=== PATIENT | male | born 1970 | race Caucasian/White ===

== ENCOUNTER 2017-02-02 11:13 | Inpatient (IN) | payer OTHER ==
[2017-02-02 11:38] VITALS: BMI 34.0
--- NOTE | 2017-02-02 20:20 | HP ---
COWS - Scale Resting Pulse: 1= AL 81-100 Sweatin=Flushed/Facial Moisture Restless Observation: 5= Unable to Sit Still Pupil Size: 1= Pupils >than Normal Bone or Joint Aches: 4=Acute Joint/Muscle Pain Runny Nose/ Eye Tearin= Runny Nose/Eyes GI Upset > 30mins: 2= Nausea/Diarrhea Tremor Observation: 4= Gross Tremor/Twitching Yawning Observation: 0= None Anxiety or Irritability: 4=Extreme Anxiety Goose Flesh Skin: 0=Smooth Skin COWS Score: 25 CIWA Score - CIWA Score Nausea/Vomitin-Mild Nausea/No Vomiting Muscle Tremors: 5 Anxiety: 5 Agitation: 5 Paroxysmal Sweats: 3 Orientation: 0-Oriented Tacttile Disturbances: 0-None Auditory Disturbances: 0-None Visual Disturbances: 0-None Headache: 0-None Present CIWA-Ar Total Score: 19 Admission ROS S - HPI Chief Complaint: SEEKING DETOX FOR ALCOHOLISM AND HEROIN ADDICTION Allergies/Adverse Reactions: Allergies Allergy/AdvReac Type Severity Reaction Status Date / Time No Known Allergies Allergy Verified 02/02/17 12:13 History of Present Illness: 46 Y.O. MALE WITH OPIOID AND ALCOHOLO DEPENDENCE ADMITTED FOR DETOX TXMENT. CLIENT RETURNS FROM [facility] AFTER BEING SENT THERE EARLIER FOR C/O CHEST PAIN. HE HAS SINCE BEEN MEDICALLY CLEARED AND HAS RETURNED FOR DETOX TXMENT. Exam Limitations: No Limitations - Ebola screening Have you traveled outside of the country in the last 21 days: No Have you had contact with anyone from an Ebola affected area: No Have you been sick,other than usual withdrawal symptoms: No Do you have a fever: No - Review of Systems Constitutional: Chills, Loss of Appetite, Malaise, Night Sweats, Changes in sleep, Unintentional Wgt. Loss EENT: reports: Nose Congestion, Dental Problems, Other (RINORRHEA) Respiratory: reports: Shortness of Breath Cardiac: reports: Chest Pain (MUSCULOSKELETAL R/T CLEARED BY ED) GI: reports: Nausea, Poor Appetite : reports: No Symptoms Reported Musculoskeletal: reports: Joint Pain (L ANKLE PAIN), Muscle Pain (CHEST) Integumentary: reports: Bruising (TO BLE FROM TRYING TO SHOOT HEROIN) Neuro: reports: No Symptoms reported Endocrine: reports: No Symptoms Reported Hematology: reports: No Symptoms Reported Psychiatric: reports: Anxious, Depressed Other Systems: Reviewed and Negative Patient History - Patient Medical History Hx Anemia: No Hx Asthma: No Hx Chronic Obstructive Pulmonary Disease (COPD): No Hx Cancer: No Hx Cardiac Disorders: No Hx Congestive Heart Failure: No Hx Hypertension: No Hx Hypercholesterolemia: No Hx Pacemaker: No HX Cerebrovascular Accident: No Hx Seizures: No Hx Dementia: No Hx Diabetes: No Hx Gastrointestinal Disorders: No Hx Liver Disease: Yes (H/O HEPC ) Hx Genitourinary Disorders: No Hx Sexually Transmitted Disorders: No Hx Renal Disease (ESRD): No Hx Thyroid Disease: No Hx Human Immunodeficiency Virus (HIV): No Hx Hepatitis C: Yes Hx Depression: Yes (SEROQUEL) Hx Suicide Attempt: No Hx Bipolar Disorder: No Hx Schizophrenia: No Other Medical History: DENIES - Patient Surgical History Past Surgical History: No Hx Neurologic Surgery: No Hx Cataract Extraction: No Hx Cardiac Surgery: No Hx Lung Surgery: No Hx Breast Surgery: No Hx Breast Biopsy: No Hx Abdominal Surgery: No Hx Appendectomy: No Hx Cholecystectomy: No Hx Genitourinary Surgery: No Hx Section: No Hx Orthopedic Surgery: No Anesthesia Reaction: No - PPD History Previous Implant?: No Documented Results: Negative w/o proof Implanted On Prior [facility] Admission?: No PPD to be Administered?: Yes - Smoking Cessation Smoking history: Current every day smoker Have you smoked in the past 12 months: Yes Aproximately how many cigarettes per day: 10 Cigars Per Day: 0 Hx Chewing Tobacco Use: No Initiated information on smoking cessation: Yes 'Breaking Loose' booklet given: 02/02/17 - Substance & Tx. History Hx Alcohol Use: Yes Hx Substance Use: Yes Substance Use Type: Alcohol, Cocaine, Heroin Hx Substance Use Treatment: Yes (DOES NOT RECALL) - Substances Abused Heroin Route: Injection Frequency: Daily Amount used: 8 bags Age of first use: 20 Date of Last Use: 02/02/17 Cocaine Route: Injection Frequency: Daily Amount used: $20 Age of first use: 18 Date of Last Use: 02/02/17 Alcohol Route: Oral Frequency: Daily Amount used: 4-40 oz beer Age of first use: 20 Date of Last Use: 02/02/17 Family Disease History - Family Disease History Family History: Unable to Obtain (ESTRANGED) Admission Physical Exam BHS - Vital Signs Vital Signs: Vital Signs - 24 hr 02/02/17 11:32 Temperature 96.8 F L Pulse Rate 98 H Respiratory 20 Rate Blood Pressure 131/81 - Physical General Appearance: Yes: Appropriately Dressed, Moderate Distress, Tremorous, Irritable, Sweating, Anxious HEENTM: Yes: EOMI, Normocephalic, SRI, Pharynx Normal, Nasal Congestion, Rhinorrhea, Other (PARTIAL DENTURES) Respiratory: Yes: Chest Non-Tender, Lungs Clear, Normal Breath Sounds, No Respiratory Distress, No Accessory Muscle Use Neck: Yes: No masses,lesions,Nodules, Supple, Trachea in good position Breast: Yes: Breast Exam Deferred Cardiology: Yes: Regular Rhythm, S1, S2, Tachycardia Abdominal: Yes: Normal Bowel Sounds, Non Tender, Soft Genitourinary: Yes: Within Normal Limits Back: Yes: Normal Inspection Musculoskeletal: Yes: full range of Motion, Gait Steady Extremities: Yes: Normal Capillary Refill, Normal Range of Motion, Non-Tender, Tremors 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 NML intact, Fully Oriented, Alert, Motor Strength 5/5 Integumentary: Yes: Warm, Moist, Track [place] Lymphatic: Yes: Within Normal Limits - Diagnostic (1) Nicotine dependence Status: Chronic Qualifiers: Nicotine product type: cigarettes Substance use status: uncomplicated Qualified Code(s): F17.210 - Nicotine dependence, cigarettes, uncomplicated (2) Alcohol dependence with uncomplicated withdrawal Status: Chronic (3) Opioid dependence with withdrawal Status: Chronic (4) Cocaine dependence, uncomplicated Status: Chronic Cleared for Admission [facility] - Detox or Rehab [facility] Level of Care: Medically Managed Detox Regimen/Protocol: Methadone/Librium [facility] Breath Alcohol Content Breath Alcohol Content: 0 Urine Drug Screen - Results Drug Screen Negative: No Urine Drug Screen Results: KAMI-Cocaine, OPI-Opiates, MTD-Methadone
[2017-02-02] MEDS ORDERED: chlordiazePOXIDE HCL 25 MG CAPSULE PO PRN (20:36)
[2017-02-02] MEDS ORDERED: P-EPHED 60MG/TRIPROLIDI 2.5MG TABLET PO PRN (20:36)
[2017-02-02] MEDS ORDERED: MAGNESIUM HYDROX 2400MG/30ML ORAL SUSPENSION 30 ML CUP PO PRN (20:36)
[2017-02-02] MEDS ORDERED: ACETAMINOPHEN 325 MG TABLET (FP) PO PRN (20:36)
[2017-02-02] MEDS ORDERED: NICOTINE POLACRILEX 2 MG GUM BC PRN (20:36)
[2017-02-02] MEDS ORDERED: diphenhydrAMINE HCL 50 MG CAPSULE PO PRN (20:36)
[2017-02-02] MEDS ORDERED: MAGNESIUM CITRATE 300 ML BOTTLE PO PRN (20:36)
[2017-02-02] MEDS ORDERED: METHADONE HCL 10 MG TABLET (FOR DETOX USE ONLY) PO ONE ×2 (20:36→23:00)
[2017-02-02] MEDS ORDERED: MENTHOL/PHENOL 1 EACH UD MM PRN (20:36)
[2017-02-02] MEDS ORDERED: hydrOXYzine PAMOATE 50 MG CAPSULE (FP) PO PRN (20:36)
[2017-02-02] MEDS ORDERED: MAG HYDROX/AL HYDROX/SIMETH 30 ML UNIT-DOSE CUP PO PRN (20:36)
[2017-02-02] MEDS ORDERED: guaiFENesin/D-METHORPHAN HB 10 ML UNIT-DOSE CUPS PO PRN (20:36)
[2017-02-02] MEDS ORDERED: LOPERAMIDE HCL 2 MG CAPSULE PO PRN (20:36)
[2017-02-02] MEDS ORDERED: METHADONE HCL 10 MG TABLET (FOR DETOX USE ONLY) ONE (23:18)
[2017-02-02] MEDS: chlordiazePOXIDE HCL 25 MG CAPSULE PO SCH (23:30)
[2017-02-02] MEDS: NICOTINE 14 MG/24 HOURS TOPICAL PATCH TD SCH (23:31)
[2017-02-02] MEDS: IBUPROFEN 400 MG TABLET (FP) PO PRN (23:42)
[2017-02-02] MEDS: THIAMINE HCL 100 MG TABLET (FP) PO SCH (23:47)
[2017-02-03 01:40] LABS: URINE APPEARANCE SLCLOUDY; URINE BILIRUBIN NEGATIVE (NEGATIVE); URINE BLOOD NEGATIVE (NEGATIVE); URINE GLUCOSE (UA) NEGATIVE (NEGATIVE); URINE KETONE NEGATIVE (NEGATIVE); URINE LEUK ESTERASE NEGATIVE (NEGATIVE); URINE NITRITE NEGATIVE (NEGATIVE); URINE PROTEIN NEGATIVE (NEGATIVE); URINE UROBILINOGEN NEGATIVE mg/dL (0.2-1.0)
[2017-02-03 01:48] LABS: URINE COLOR DK.YELLOW
[2017-02-03] MEDS: chlordiazePOXIDE HCL 25 MG CAPSULE PO SCH ×3 (06:57→17:55)
[2017-02-03] MEDS: IBUPROFEN 400 MG TABLET (FP) PO PRN (06:58)
--- NOTE | 2017-02-03 08:29 | CONSULT ---
[facility] Psychiatric Consult - Data Date of interview: 02/03/17 Admission source: [facility] Identifying data: This ios 46 years old homopsexual male with history of depression and anxiety, history of psychiatric hospitalization, intoxicated with : Alcohol, Cocaine and Nicotine Substance Abuse History: - Smoking Cessation. Smoking history: Current every day smoker. Have you smoked in the past 12 months: Yes. Aproximately how many cigarettes per day: 10. Hx Chewing Tobacco Use: No. Initiated information on smoking cessation: Yes. - Substance & Tx. History. Hx Alcohol Use: Yes. Hx Substance Use: Yes. Substance Use Type: Alcohol, Cocaine, Heroin. Hx Substance Use Treatment: Yes (DOES NOT RECALL). - Substances Abused. Heroin. Route: Injection. Frequency: Daily. Amount used: 8 bags. Age of first use: 20. Date of Last Use: 02/02/17. Cocaine. Route: Injection. Frequency: Daily. Amount used: $20. Age of first use: 18. Date of Last Use: 02/02/17. Alcohol. Route: Oral. Frequency: Daily. Amount used: 4-40 oz beer. Age of first use: 20. Date of Last Use: 02/02/17 Medical History: Chest pain history Psychiatric History: Josiah meehan reports history of anxiety and insomnia, reports taking prior to admission: Seroquel 300mg po qhs. Vistaril 50mg po prn q4 for agitation. Reports unclear psychiatric admission on aboipr 10 years ago for safety Physical/Sexual Abuse/Trauma History: Unclear Additional Comment: Seroquel 300mg po qhs. Vistaril 50mg po prn q4 for agitation Mental Status Exam - Mental Status Exam Alert and Oriented to: Person Cognitive Function: Fair Patient Appearance: Well Groomed Mood: Anxious Affect: Labile Patient Behavior: Impulsive, Talkative Voice Loudness: Mildly Loud Thought Process: Flight of Ideas, Goal Oriented Thought Disorder: Being Controlled Hallucinations: Denies Suicidal Ideation: Denies Homicidal Ideation: Denies Insight/Judgement: Fair Sleep: Difficulty falling asleep Appetite: Weight loss Muscle strength/Tone: Normal Gait/Station: Normal Additional Comments: Seroquel 300mg po qhs. Vistaril 50mg po prn q4 for agitation Psychiatric Findings - Problem List ([place] 1, 2,3) (1) Nicotine dependence Current Visit: Yes Status: Acute Qualifiers: Nicotine product type: cigarettes Substance use status: uncomplicated Qualified Code(s): F17.210 - Nicotine dependence, cigarettes, uncomplicated (2) Alcohol dependence with uncomplicated withdrawal Current Visit: Yes Status: Chronic (3) Cocaine dependence, uncomplicated Current Visit: Yes Status: Chronic (4) Opioid dependence with withdrawal Current Visit: Yes Status: Chronic (5) Drug-induced mood disorder Current Visit: Yes Status: Acute - Initial Treatment Plan Initial Treatment Plan: Seroquel 300mg po qhs. Vistaril 50mg po prn q4 for agitation
--- NOTE | 2017-02-03 09:45 | PN ---
S CIWA - CIWA Score Nausea/Vomitin Muscle Tremors: 4-Moderate,w/Arms Extend Anxiety: 4-Mod. Anxious/Guarded Agitation: 4-Moderately Restless Paroxysmal Sweats: 3 Orientation: 0-Oriented Tacttile Disturbances: 0-None Auditory Disturbances: 0-None Visual Disturbances: 0-None Headache: 0-None Present CIWA-Ar Total Score: 18 BHS COWS - Scale Resting Pulse: 0= ND 80 or Below Sweatin= Chills/Flushing Restless Observation: 1= Difficult to Sit Still Pupil Size: 1= Pupils >than Normal Bone or Joint Aches: 1= Mild Discomfort Runny Nose/ Eye Tearin= Nasal Congestion GI Upset > 30mins: 2= Nausea/Diarrhea Tremor Observation of Outstretched Hands: 2= Slight Tremor Visible Yawning Observation: 1= 1-2x During Session Anxiety or Irritability: 2=Irritable/Anxious Goose Flesh Skin: 3=Piloerection COWS Score: 15 BHS Progress Note (SOAP) Subjective: nausea, sweats, interrupted sleep, anxiety, tremors, requesting cane as amublatory aid Objective: 02/03/17 09:44 Vital Signs - 8 hr 02/03/17 06:48 Temperature 97.9 F Pulse Rate 54 L Respiratory 16 Rate Blood Pressure 150/77 Laboratory Tests 02/02/17 23:52 Urine Color Dk.yellow Urine Appearance Slcloudy Urine pH 5.0 Ur Specific [place] 1.025 Urine Protein Negative Urine Glucose (UA) Negative Urine Ketones Negative Urine Blood Negative Urine Nitrite Negative Urine Bilirubin Negative Urine Urobilinogen Negative labs pending Assessment: 02/03/17 09:44 withdrawal sx Plan: cont detox.
[2017-02-03] MEDS ORDERED: METHADONE HCL 10 MG TABLET (FOR DETOX USE ONLY) PO SCH (10:00)
[2017-02-03] MEDS ORDERED: PRENATAL VITAMINS W/ FOLIC ACID TABLET (FP) PO SCH (10:00)
[2017-02-03] MEDS ORDERED: PANTOPRAZOLE 40 MG TABLET (FP) PO SCH (10:00)
[2017-02-03 10:02] LABS: MCH 28.5 pg (25.7-33.7); MCHC 33.7 g/dl (32.0-35.9); MEAN CELL VOLUME 84.4 fl (80-96); MEAN PLT VOLUME 8.6 fl (7.5-11.1); RDW 13.9 % (11.9-15.9); WHITE BLOOD COUNT 7.6 K/mm3 (4.0-10.0)
[2017-02-03 10:17] LABS: ALK PHOS 38 U/L (45-117); ANION GAP 8 (8-16); BILIRUBIN,TOTAL 1.2 mg/dL (0.2-1.0); CALCIUM 9.1 mg/dL (8.5-10.1); CO2 29 mmol/L (21-32); CREATININE 0.8 mg/dL (0.7-1.3); GLUCOSE,RANDOM 113 mg/dL (74-106); SGOT/AST 26 U/L (15-37); SGPT/ALT 36 U/L (12-78); TOT PROT 8.3 g/dl (6.4-8.2)
[2017-02-03] MEDS ORDERED: TRIMETHOBENZAMIDE HCL 200MG/2ML INJ IM ONE (10:26)
[2017-02-03] MEDS ORDERED: TRIMETHOBENZAMIDE HCL 200MG/2ML INJ IM PRN (10:26)
[2017-02-03] MEDS: cloNIDine HCL 0.1 MG TABLET PO SCH ×2 (11:11→22:24)
[2017-02-03] MEDS: NAPROXEN 500 MG TABLET (FP) PO SCH ×2 (11:12→22:24)
[2017-02-03] MEDS: NICOTINE 14 MG/24 HOURS TOPICAL PATCH TD SCH (11:16)
[2017-02-03 11:41] LABS: PLATELET COUNT 180 K/MM3 (134-434); PLATELET ESTIMATE ADEQUATE (NORMAL)
[2017-02-03] MEDS ORDERED: FLU VACCINE QUAD 60 MCG/0.5 ML (MDV 17-18) IM ONE (12:00)
--- NOTE | 2017-02-03 13:23 | EKG ---
Test Reason : Blood Pressure : / mmHG Vent. Rate : 063 BPM Atrial Rate : 063 BPM P-R Int : 168 ms QRS Dur : 098 ms QT Int : 416 ms P-R-T Axes : 001 022 012 degrees QTc Int : 425 ms NORMAL SINUS RHYTHM NORMAL ECG WHEN COMPARED WITH ECG OF 02-FEB-2017 21:22, NO SIGNIFICANT CHANGE WAS FOUND Confirmed by CHARLOTTE REYES MD ([id number]) on 02/03/2017 1:23:41 PM Referred By: Ronak Muhammad Confirmed By:CHARLOTTE REYES MD
--- NOTE | 2017-02-03 13:25 | EKG ---
Test Reason : Blood Pressure : / mmHG Vent. Rate : 056 BPM Atrial Rate : 056 BPM P-R Int : 170 ms QRS Dur : 106 ms QT Int : 432 ms P-R-T Axes : 016 024 013 degrees QTc Int : 416 ms SINUS BRADYCARDIA WITH SINUS ARRHYTHMIA MINIMAL VOLTAGE CRITERIA FOR LVH, MAY BE NORMAL VARIANT POSSIBLE ANTERIOR INFARCT , AGE UNDETERMINED ABNORMAL ECG WHEN COMPARED WITH ECG OF 02-FEB-2017 12:12, NO SIGNIFICANT CHANGE WAS FOUND Confirmed by CHARLOTTE REYES MD ([id number]) on 02/03/2017 1:25:15 PM Referred By: Ronak Muhammad Confirmed By:CHARLOTTE REYES MD
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
--- NOTE | 2017-02-03 17:23 | DS ---
[facility] Detox Discharge Summary Admission Date: 02/02/17 Discharge Date: 02/03/17 - History Present History: Alcohol Dependence, Cocaine Dependence, Opioid Dependence, Sedative Dependence Pertinent Past History: nicotine dependence, anxiety, depression, insomnia - Physical Exam Results Vital Signs: Vital Signs Temperature 97.6 F 02/03/17 14:02 Pulse Rate 76 02/03/17 14:02 Respiratory Rate 16 02/03/17 14:02 Blood Pressure 135/74 02/03/17 14:02 O2 Sat by Pulse Oximetry (%) Laboratory Tests 02/02/17 02/03/17 02/03/17 23:52 07:50 07:50 WBC 7.6 D RBC 4.77 Hgb 13.6 Hct 40.2 MCV 84.4 MCH 28.5 MCHC 33.7 RDW 13.9 Plt Count 180 MPV 8.6 D Platelet Estimate Adequate Platelet Comment No clumping noted Sodium 138 Potassium 3.4 L Chloride 101 Carbon Dioxide 29 Anion Gap 8 BUN 9 D Creatinine 0.8 Creat Clearance w eGFR > 60 Random Glucose 113 H Calcium 9.1 Total Bilirubin 1.2 H D AST 26 D ALT 36 Alkaline Phosphatase 38 L Total Protein 8.3 H Albumin 4.0 Urine Color Dk.yellow Urine Appearance Slcloudy Urine pH 5.0 Ur Specific [place] 1.025 Urine Protein Negative Urine Glucose (UA) Negative Urine Ketones Negative Urine Blood Negative Urine Nitrite Negative Urine Bilirubin Negative Urine Urobilinogen Negative RPR Titer 02/03/17 07:50 WBC RBC Hgb Hct MCV MCH MCHC RDW Plt Count MPV Platelet Estimate Platelet Comment Sodium Potassium Chloride Carbon Dioxide Anion Gap BUN Creatinine Creat Clearance w eGFR Random Glucose Calcium Total Bilirubin AST ALT Alkaline Phosphatase Total Protein Albumin Urine Color Urine Appearance Urine pH Ur Specific [place] Urine Protein Urine Glucose (UA) Urine Ketones Urine Blood Urine Nitrite Urine Bilirubin Urine Urobilinogen RPR Titer Nonreactive Pertinent Admission Physical Exam Findings: withdrawal sx - Treatment Hospital Course: Detox Protocol Followed, Discharged Condition Good Patient has Accepted a Rehab Referral to: NO - Medication Discharge Medications: Ambulatory Orders Klonopin - 2 mg PO DAILY 02/02/17 Quetiapine Fumarate [Seroquel -] 200 mg PO HS 02/02/17 Quetiapine Fumarate [Seroquel -] 300 mg PO HS #30 tab 02/03/17 - Diagnosis (1) Drug-induced mood disorder Current Visit: Yes Status: Acute (2) Nicotine dependence Current Visit: Yes Status: Chronic Qualifiers: Nicotine product type: cigarettes Substance use status: uncomplicated Qualified Code(s): F17.210 - Nicotine dependence, cigarettes, uncomplicated (3) Alcohol dependence with uncomplicated withdrawal Current Visit: Yes Status: Chronic (4) Cocaine dependence, uncomplicated Current Visit: Yes Status: Chronic (5) Opioid dependence with withdrawal Current Visit: Yes Status: Chronic
--- NOTE | 2017-02-03 17:33 | PN ---
S Progress Note Note: Disability Insurance Hearing Officer intervened on floor and determined final warning was appropriate action, adminsitrative discharge cancelled. Low k noted, supplement k
[2017-02-03] MEDS ORDERED: POTASSIUM CHLORIDE TABS 20 MEQ TABLET.ER (FP) PO ONE (17:45)
[2017-02-03] MEDS ORDERED: POTASSIUM CHLORIDE ORAL LIQUID 20 MEQ/15 ML PO SCH (22:00)
[2017-02-03] MEDS ORDERED: QUEtiapine FUMARATE 300 MG TABLET PO SCH (22:00)
[2017-02-03 22:02] VITALS: BP 137/92; PULSE 80; TEMP 98.4
[2017-02-03] MEDS: THIAMINE HCL 100 MG TABLET (FP) PO SCH (22:24)
[2017-02-03] MEDS ORDERED: chlordiazePOXIDE HCL 25 MG CAPSULE PO SCH (23:00)
--- NOTE | 2017-02-03 23:00 | PN ---
S Progress Note Note: INFORMED BY RN ON UNIT PT SIGNED OUT AMA AFTER CLIENT LEFT UNIT. PROVIDER NOT ABLE TO SEE PT DUE TO HIM NOT BEING AVAILABLE
[2017-02-04] MEDS ORDERED: METHADONE HCL 5 MG TABLET (FOR DETOX USE ONLY) PO SCH (10:00)
[2017-02-04] MEDS ORDERED: chlordiazePOXIDE 5 MG CAPSULE PO SCH (23:00)
[2017-02-05] MEDS ORDERED: chlordiazePOXIDE HCL 10 MG CAPSULE PO SCH (23:00)
[2017-02-06] MEDS ORDERED: METHADONE HCL 10 MG TABLET (FOR DETOX USE ONLY) PO SCH (10:00)
[2017-02-07] MEDS ORDERED: METHADONE HCL 5 MG TABLET (FOR DETOX USE ONLY) PO SCH (06:00)
== END 2017-02-03 22:55 | disposition left against medical advice (07) | DRG 770 ==
LOC: YASAS 11:13 → Y6N 23:10
PROVIDERS: ADMIT Internal Medicine Addiction Medicine; ATTEND Internal Medicine Addiction Medicine
PROC: HZ2ZZZZ Detoxification Services for Substance Abuse Treatment (ICD-10-PCS; principal; 2017-02-02)
DX: F11.23 Opioid dependence with withdrawal (principal); F10.230 Alcohol dependence with withdrawal, uncomplicated; F14.20 Cocaine dependence, uncomplicated; F17.210 Nicotine dependence, cigarettes, uncomplicated; F19.24 Other psychoactive substance dependence with psychoactive substance-induced mood disorder; B19.20 Unspecified viral hepatitis C without hepatic coma
CPT/HCPCS: 36415; 80053; 81003; 85027; 86593; 90688; 93005; 93010; G0008

== ENCOUNTER 2017-02-02 12:02 | Emergency (ER) | payer OTHER ==
--- NOTE | 2017-02-02 12:16 | PDOC ---
History of Present Illness - General History Source: Patient Exam Limitations: No Limitations - History of Present Illness Initial Comments: 02/02/17 13:15 The patient is a 46 year old male, with a significant past medical history of depression and IV heroin abuse, who presents to the emergency department from [facility] s/p fall on Tuesday after using fentanyl for the first time in a while and taking his psych medications. Denies LOC or head strike. Reports feeling lightheaded and then falling and injuring his LLE and landing on his buttocks. The patient reports since falling having chest pain with any movement of his upper body. CP is sharp, non radiating and present only with movement. He has been ambulating since the fall. Has not taken any pain medication. The patient reports daily IV heroin abuse, last episode was about 6 hours ago. He denies any recent fevers, chills, headache or focal weakness. He denies any recent nausea, vomit, diarrhea or constipation. He denies any recent chest pain or shortness of breath. He denies any recent dysuria, frequency, urgency or hematuria. Allergies: NKA Past surgical history: None reported. Social History: Current Smoker. Daily EtOH use. See HPI. <Allen Pate - Last Filed: 02/02/17 13:15> <Jake De - Last Filed: 02/02/17 21:27> - General Chief Complaint: Chest Pain Stated Complaint: CHEST PAIN Time Seen by Provider: 02/02/17 12:15 Past History <Allen Pate - Last Filed: 02/02/17 13:15> <Jake De - Last Filed: 02/02/17 21:27> - Past Medical History Allergies/Adverse Reactions: Allergies Allergy/AdvReac Type Severity Reaction Status Date / Time No Known Allergies Allergy Verified 02/02/17 12:13 Home Medications: Ambulatory Orders Klonopin - 2 mg PO DAILY 02/02/17 Quetiapine Fumarate [Seroquel -] 200 mg PO HS 02/02/17 Review of Systems - Review of Systems Able to Perform ROS?: Yes Comments:: 02/02/17 13:16 GENERAL/CONSTITUTIONAL: No fever or chills. No weakness. HEAD, EYES, EARS, NOSE AND THROAT: No change in vision. No ear pain or discharge. No sore throat. CARDIOVASCULAR: +chest pain. No shortness of breath. RESPIRATORY: No cough, wheezing, or hemoptysis. GASTROINTESTINAL: No nausea, vomiting, diarrhea or constipation. GENITOURINARY: No dysuria, frequency, or change in urination. MUSCULOSKELETAL: +LLE pain. No joint or muscle swelling or pain. No neck or back pain. SKIN: No rash NEUROLOGIC: No headache, vertigo, loss of consciousness, or change in strength/ sensation. ENDOCRINE: No increased thirst. No abnormal weight change. HEMATOLOGIC/LYMPHATIC: No anemia, easy bleeding, or history of blood clots. ALLERGIC/IMMUNOLOGIC: No hives or skin allergy. <Allen Pate - Last Filed: 02/02/17 13:15> *Physical Exam - Vital Signs Last Vital Signs Temp Pulse Resp BP Pulse Ox 98.7 F 69 20 135/52 99 02/02/17 12:14 02/02/17 12:14 02/02/17 12:14 02/02/17 12:14 02/02/17 12:14 - Physical Exam Comments: 02/02/17 13:16 GENERAL: Awake, alert, and fully oriented, in no acute distress HEAD: No signs of trauma EYES: PERRLA, EOMI, sclera anicteric, conjunctiva clear ENT: Auricles normal inspection, hearing grossly normal, nares patent, oropharynx clear without exudates. Moist mucosa NECK: Normal ROM, supple, no lymphadenopathy, JVD, or masses LUNGS: Breath sounds equal, clear to auscultation bilaterally. No wheezes, and no crackles HEART: Regular rate and rhythm, normal S1 and S2, no murmurs, rubs or gallops. Exquisite tenderness to palpation of the left costal chondral joint by the second intercostal space. ABDOMEN: Not remarkable. Soft, nontender, normoactive bowel sounds. No guarding , no rebound. No masses EXTREMITIES: Normal range of motion, no edema. No clubbing or cyanosis. No cords , + bruising at the proximal L lateral longitudinal arch of the foot. 2+ peripheral pulses. Able to bear weight. No pain at the base of the 5th L metatarsal. FROM in all extremitites. NEUROLOGICAL: Normal speech, cranial nerves intact, negative pronator drift, 5/ 5 strength in all 4 extremities, normal sensation to light touch in all 4 extremities, normal cerebellar exam, normal gait, normal reflexes and tone SKIN: Warm, Dry, normal turgor, no rashes or lesions noted. Track palmer left dorsum of his hand. <Allen Pate - Last Filed: 02/02/17 13:15> Heart Score/ECG Review - History History: Slightly suspicious - Electrocardiogram EKG: Non specific repolarization disturbance - Age Age: </= 46 - Risk Factors Based on the list above the patient has:: No risk factors known - Troponin Troponin: </= normal limit - Score Heart Score - Total: 1 #1 02/02/17 21:26 NSR, rate 70, normal axis and intervals, isolated TWI III, no STEFANIE <Jake De - Last Filed: 02/02/17 21:27> ED Treatment Course - LABORATORY CBC & Chemistry Diagram: 02/02/17 13:30 02/02/17 13:30 <Jake De - Last Filed: 02/02/17 21:27> Medical Decision Making - Medical Decision Making 02/02/17 12:59 46yo M hx IVDU (last use 3am today) p/w CP and L foot pain s/p fall 4 days ago. Exam with reproducible CP and bruising to L lateral foot. Likely musculoskeletal pain 2/2 trauma but will check a troponin to evaluate for ACS. -labs -XR -toradol -reassess 02/02/17 14:49 Labs including trop unremarkable. CXR and foot XR negative for acute pathology. Pt ambulating in the ED with steady gait. Likely musculoskeletal pain, stable for DC home. I discussed the physical exam findings, ancillary test results and final diagnoses with the patient. I answered all of the patient's questions. The patient was satisfied with the care received and felt comfortable with the discharge plan and treatment plan. The patient will call their primary care physician within 24 hours to arrange follow-up and will return to the Emergency Department with any new, persistent or worsening symptoms. <Jake De - Last Filed: 02/02/17 21:27> *DC/Admit/Observation/Transfer - Attestations Scribe Attestion: 02/02/17 13:16 Documentation prepared by Allen Pate, acting as clinical laboratory medical director for Jake De MD. <LucienAllen Pino - Last Filed: 02/02/17 13:15> - Discharge Dispostion Admit: No - Attestations Physician Attestion: 02/02/17 14:52 I, Dr. Jake De MD, attest that this document has been prepared under my direction and personally reviewed by me in its entirety. I further attest, that it accurately reflects all work, treatment, procedures and medical decision -making performed by me. <Jake De - Last Filed: 02/02/17 21:27> Diagnosis at time of Disposition: Chest pain Qualifiers: Chest pain type: unspecified Qualified Code(s): R07.9 - Chest pain, unspecified - Discharge Dispostion Disposition: HOME Condition at time of disposition: Stable - Patient Instructions Printed Discharge Instructions: DI for Chest Pain Additional Instructions: You may take 600mg ibuprofen every 6 hours as needed for your pain. Follow up with your primary doctor within 1 week. Please return to the emergency department if you have any new, worsening, or concerning symptoms.
[2017-02-02 12:24] VITALS: TEMP 98.7; BMI 34.7
[2017-02-02] MEDS ORDERED: KETOROLAC TROMETHAMINE 15 MG/ML VIAL IVPUSH ONE (12:48)
[2017-02-02] MEDS ORDERED: KETOROLAC TROMETHAMINE 15 MG/ML VIAL ONE (12:58)
[2017-02-02 13:37] LABS: BASOPHIL 0.6 % (0-2.0); EOSINOPHIL 2.8 % (0-4.5); MCH 28.4 pg (25.7-33.7); MCHC 33.8 g/dl (32.0-35.9); MEAN CELL VOLUME 83.9 fl (80-96); MEAN PLT VOLUME 7.6 fl (7.5-11.1); NEUTROPHILS 66.9 % (42.8-82.8); PLATELET COUNT 171 K/MM3 (134-434); RDW 14.4 % (11.9-15.9); WHITE BLOOD COUNT 5.7 K/mm3 (4.0-10.0)
[2017-02-02 14:26] LABS: ALBUMIN 3.7 g/dl (3.4-5.0); ANION GAP 7 (8-16); BILIRUBIN,TOTAL 0.7 mg/dL (0.2-1.0); CALCIUM 8.9 mg/dL (8.5-10.1); CO2 28 mmol/L (21-32); CREATININE 0.8 mg/dL (0.7-1.3); GLUCOSE,RANDOM 97 mg/dL (74-106); SGPT/ALT 38 U/L (12-78); TOT PROT 8.2 g/dl (6.4-8.2)
[2017-02-02 14:28] LABS: ALK PHOS 38 U/L (45-117); TROPONIN I < 0.02 ng/ml (0.00-0.05)
[2017-02-02 14:31] LABS: SGOT/AST 47 U/L (15-37)
[2017-02-02 15:04] VITALS: BP 128/74; PULSE 80
--- NOTE | 2017-02-04 09:50 | EKG ---
Test Reason : Blood Pressure : / mmHG Vent. Rate : 070 BPM Atrial Rate : 070 BPM P-R Int : 170 ms QRS Dur : 110 ms QT Int : 428 ms P-R-T Axes : 017 028 013 degrees QTc Int : 462 ms NORMAL SINUS RHYTHM MINIMAL VOLTAGE CRITERIA FOR LVH, MAY BE NORMAL VARIANT NO PREVIOUS ECGS AVAILABLE Confirmed by GWYN MAURICE MD ([id number]) on 02/04/2017 9:50:00 AM Referred By: Confirmed By:GWYN MAURICE MD
== END 2017-02-02 15:00 | disposition other institution (70) ==
LOC: JER 12:02
PROC: 3E0333Z Introduction of Anti-inflammatory into Peripheral Vein, Percutaneous Approach (ICD-10-PCS; principal; 2017-02-02)
DX: R07.9 Chest pain, unspecified (principal); M25.572 Pain in left ankle and joints of left foot; W19.XXXA Unspecified fall, initial encounter; Y93.89 Activity, other specified; Y92.89 Other specified places as the place of occurrence of the external cause; Y99.8 Other external cause status; F11.20 Opioid dependence, uncomplicated
CPT/HCPCS: 36415; 71020-TC; 73630-TC-LT; 80053; 84484; 85025; 93005; 93010; 96374; 99282-25